=== PATIENT | female | born 1950 | race Caucasian/White ===

== ENCOUNTER 2020-03-24 07:40 | Observation (INO) | payer OTHER ==
[~2020-03-24] VITALS: Ht 157.5 cm; Wt 71.2 kg
[2020-03-24 08:16] VITALS: BP 139/83
[2020-03-24 09:43] LABS: CALCIUM 8.6 mg/dL (8.5-10.1); CREATININE SERUM 0.8 mg/dL (0.6-1.0); GFR1 > 60 mL/min; GLUCOSE SERUM 106 mg/dL (74-106)
[2020-03-24 10:16] LABS: CARBON DIOXIDE 26.4 mmol/L (21-32); CHLORIDE SERUM 104 mmol/L (98-107); POTASSIUM SERUM 3.8 mmol/L (3.5-5.1); SODIUM SERUM 140 mmol/L (136-145)
[2020-03-24] MEDS ORDERED: LEVOXYL0.05 MG PO (10:33)
[2020-03-24] MEDS ORDERED: MELOXICAM15 M1 PO (10:33)
[2020-03-24] MEDS ORDERED: FENOFIBRATE150 MG PO (10:36)
[2020-03-24] MEDS ORDERED: ATORVASTATIN CA40 M1 PO (10:37)
[2020-03-24 15:15] VITALS: BP 148/74
[2020-03-24 16:13] VITALS: BP 160/61
[2020-03-24 20:33] VITALS: BP 127/62
[2020-03-25 05:33] VITALS: BP 98/76
[2020-03-25 07:23] LABS: BASOPHIL % 0.3 % (0-2); PLATELET COUNT 214 x10^3mcL (130-400); RED CELL DISTRIBUTION WIDTH 14.9 % (11.5-14.5)
[2020-03-25 08:03] LABS: CALCIUM 9.1 mg/dL (8.5-10.1); CARBON DIOXIDE 28.3 mmol/L (21-32); CHLORIDE SERUM 105 mmol/L (98-107); CREATININE SERUM 0.7 mg/dL (0.6-1.0); GFR1 > 60 mL/min; GLUCOSE SERUM 114 mg/dL (74-106); POTASSIUM SERUM 3.7 mmol/L (3.5-5.1); SODIUM SERUM 139 mmol/L (136-145)
[2020-03-25 09:14] VITALS: BP 152/84
[2020-03-25 12:50] VITALS: BP 113/64
[2020-03-25 16:22] VITALS: BP 113/64
[2020-03-25 16:49] VITALS: BP 148/77
== END 2020-03-25 21:07 | disposition home or self-care (01) ==
LOC: DS 07:40 → OR 11:30 → DS 11:30 → MU 13:37
PROVIDERS: ADMIT Orthopaedic Surgery; ATTEND Orthopaedic Surgery
DX: M17.11 Unilateral primary osteoarthritis, right knee (principal)
CPT/HCPCS: 97112-GP; 97530-GP; G0378; J0690; J1885; J2270; J3010; J3490; J7120; Q0092